=== PATIENT | male | born 1975 | race Caucasian/White ===

== ENCOUNTER 2017-02-04 06:20 | Observation (INO) | payer MEDICAID ==
[2017-02-04] VITALS (9 sets, daily range): BP systolic 74–114; BP diastolic 49–69; PULSE 32–78; RESP 16–19; TEMP 97.4–97.8; O2SAT 95–99
[~2017-02-04] VITALS: Ht 182.9 cm; Wt 65.0 kg
[~2017-02-04 06:20] MED LIST: COUM1TAB PO; LEVE500 PO; LITH150C7 PO; RISP4TAB41 PO; VIST25CA PO
[2017-02-04] MEDS ORDERED: ASPI81CH CHEW (06:43)
[2017-02-04] MEDS ORDERED: DILT30TA PO (06:43)
[2017-02-04] MEDS ORDERED: LEVE500 PO (06:43)
[2017-02-04] MEDS ORDERED: NITROGLYCERIN 2% OINT 1 GM PACKET TOPICAL ONE (06:45)
[2017-02-04] MEDS ORDERED: ASPIRIN 81 MG CHEW TAB CHEW ONE (06:45)
[2017-02-04 06:52] LABS: AUTOMATED NEUTROPHIL # 5.9 TH/MM3 (1.8-7.7); BASOPHIL # 0.1 TH/MM3 (0-0.2); BASOPHIL % 0.8 % (0.0-2.0); EOSINOPHIL # 0.3 TH/MM3 (0-0.4); EOSINOPHIL % 2.7 % (0.0-4.0); HEMATOCRIT 42.5 % (39.0-51.0); HEMO FLAGS DIFF FINAL; LYMPH % 30.4 % (9.0-44.0); MEAN CELL VOLUME 87.5 FL (80.0-100.0); MEAN CORPUSCULAR HEMOGLOBIN 28.8 PG (27.0-34.0); MONO % 5.3 % (0.0-8.0); NEUT % 60.8 % (16.0-70.0); PLATELET COUNT 235 TH/MM3 (150-450); RED BLOOD COUNT 4.86 MIL/MM3 (4.50-5.90); RED CELL DISTRIBUTION WIDTH 13.7 % (11.6-17.2); WHITE BLOOD COUNT 9.8 TH/MM3 (4.0-11.0)
--- NOTE | 2017-02-04 06:52 | PD ---
HPI Chief Complaint: Chest Pain Time Seen by Provider: 06:30 Travel History International Travel<30 days: No Contact w/Intl Traveler<30days: No Traveled to known affect area: No History of Present Illness HPI The patient is a 42 year old male who presents to the [facility] emergency department with a history of chest pain that he reports began approximate hour and a half prior to arrival. The patient reports that the pain is in the left side of his chest and is a pressure sensation. He reports that it radiates to the left arm and left jaw. He reports that in spite of taking 2 sublingual nitroglycerin the pain continued. He reports that he also took 1 baby aspirin. The patient reports that he has had for cardiac stents placed previously. He reports that his last cardiac catheterization was in 1999. He reports that this was in [place] at [facility]. The patient denies having any shortness of breath associated with the chest pain. He reports having nausea but no vomiting. He reports having associated diaphoresis. He denies having any lower extremity edema, calf pain, or erythema. He does however report having a history of DVT in the past. He reports that 3 days ago he was switched over from Coumadin to provide access by a physician in [place]. The patient denies any recent fevers, cough, congestion, neck pain,abdominal pain, diarrhea , urinary symptoms, or neurologic symptoms. [facility] Past Medical History Narrative Medical The patient's past medical history is significant for psoriasis, bipolar disorder, history of DVT, history of epilepsy, reported history of coronary artery disease, however after reviewing the electronic medical records the patient was admitted 2010 to the chest pain center and the records from [place] were obtained by Dr. Pepe. According to his note, the patient had no evidence of coronary artery stenosis and no stents were placed during a cardiac catheterization that was done previously. The patient did have however mild diffuse basal spasm of the LAD relieved with nitroglycerin that was thought to be caused by long-standing cocaine abuse. I asked the patient if he continues to use cocaine. He denies this, however he does report that he may have cocaine in his system from hanging around people in a vehicle that were using. Arthritis: No Asthma: No Autoimmune Disease: No Blood Disorders: No Anxiety: Yes Depression: No Heart Rhythm Problems: No Cancer: No Cardiac Catheterization: Yes (WITH STENT PLACEMENT 08/08) Cardiovascular Problems: Yes High Cholesterol: No Chemotherapy: No Chest Pain: Yes Congestive Heart Failure: No COPD: No Cerebrovascular Accident: No Coronary Artery Disease: Yes Diabetes: No Diminished Hearing: No Deep Vein Thrombosis: Yes Endocrine: No Gastrointestinal Disorders: No GERD: No Glaucoma: No Genitourinary: No Headaches: No Hepatitis: No Hiatal Hernia: No Hypertension: No Immune Disorder: No Implanted Vascular Access Dvce: No Kidney Stones: No Musculoskeletal: No Psychiatric: No Reproductive: No Respiratory: No Immunizations Current: No Migraines: No Myocardial Infarction: Yes Radiation Therapy: No Renal Failure: No Seizures: Yes Sickle Cell Disease: No Sleep Apnea: No Thyroid Disease: No Ulcer: No Past Surgical History Narrative Surgical The patient's past surgical history is significant for an umbilical hernia repair, cardiac catheterization, facial surgery. Abdominal Surgery: Yes (UMBILICAL HERNIA REPAIR) AICD: No Appendectomy: No Arteriovenous Shunt: No Cardiac Surgery: Yes (hx heart stents per records) Cholecystectomy: No Coronary Stent: Yes (X 2 2007) Ear Surgery: No Endocrine Surgery: No Eye Surgery: No Genitourinary Surgery: No Gynecologic Surgery: No Insulin Pump: No Joint Replacement: No Neurologic Surgery: No Oral Surgery: No Pacemaker: No Thoracic Surgery: No Other Surgery: Yes Social History Alcohol Use: No Tobacco Use: Yes Substance Use: No Allergies-Medications (Allergen,Severity, Reaction): Coded Allergies: Mushroom (Verified Allergy, Severe, SWELLING, 02/04/17) Penicillin (Verified Allergy, Mild, 02/04/17) Reported Meds & Prescriptions Reported Meds & Active Scripts Active Reported Diltiazem (Diltiazem HCl) 30 Mg Tab 30 Mg PO DAILY Aspirin 81 Mg Chew 81 Mg CHEW DAILY Keppra (Levetiracetam) 500 Mg Tab 500 Mg PO BID Review of Systems General / Constitutional: No: Fever Eyes: No: Visual changes HENT: No: Headaches Cardiovascular: Positive: Chest Pain or Discomfort, Diaphoresis Respiratory: No: Shortness of Breath Gastrointestinal: Positive: Nausea, No: Abdominal Pain Genitourinary: No: Dysuria Musculoskeletal: No: Pain Skin: No Rash Neurologic: No: Weakness Psychiatric: No: Depression Endocrine: No: Polydipsia Hematologic/Lymphatic: No: Easy Bruising Physical Exam Narrative General: The patient is a well-developed well-nourished male in no acute distress. Head and Neck exam: Head is normocephalic atraumatic. Eyes: EOMI, pupils are equal round and reactive to light. Nose: Midline septum with pink mucous membranes Mouth: Dentition unremarkable. Moist mucus membranes. Posterior oropharynx is not erythematous. No tonsillar hypertrophy. Uvula midline. Airway patent. Neck: No palpable lymphadenopathy. No nuchal rigidity. No thyromegaly. Cardiovascular: Regular rate and rhythm without murmurs, gallops, or rubs. No pulse deficit to the extremities and simultaneous auscultation and palpation of his radial artery. Lungs: Clear to auscultation bilaterally. No wheezes, rhonchi, or rales. Abdomen: Soft, without tenderness to palpation in all 4 quadrants of the abdomen. No guarding, rebound, or rigidity. Normal bowel sounds are audible. No tenderness on palpation of McBurney's point. Extremities: No clubbing, cyanosis, or edema. 2+ pulses in all 4 extremities. No calf tenderness on palpation. Back: No costovertebral angle tenderness to palpation. Neurologic Exam: Grossly nonfocal. Skin Exam: No rash noted. Intact skin that is warm and dry. Data Data Last Documented VS Vital Signs Date Time Temp Pulse Resp B/P Pulse Ox O2 Delivery O2 Flow Rate FiO2 02/04/17 06:37 97 Room Air 02/04/17 06:35 16 02/04/17 06:30 97.8 74 111/69 Orders Electrocardiogram (02/04/17 06:34) Complete Blood Count With Diff (02/04/17 06:34) Basic Metabolic Panel (Bmp) (02/04/17 06:34) Ckmb (Isoenzyme) Profile (02/04/17 06:34) Troponin I (02/04/17 06:34) Chest, Single Ap (02/04/17 06:34) Iv Access Insert/Monitor (02/04/17 06:34) Ecg Monitoring (02/04/17 06:34) Oxygen Administration (02/04/17 06:34) Oximetry (02/04/17 06:34) Aspirin Chew (Aspirin Chew) (02/04/17 06:45) Nitroglycerin 2% Oint (Nitroglycerin 2% (02/04/17 06:45) CKMB (02/04/17 06:40) CKMB% (02/04/17 06:40) Labs Laboratory Tests Test 02/04/17 06:40 White Blood Count 9.8 TH/MM3 Red Blood Count 4.86 MIL/MM3 Hemoglobin 14.0 GM/DL Hematocrit 42.5 % Mean Corpuscular Volume 87.5 FL Mean Corpuscular Hemoglobin 28.8 PG Mean Corpuscular Hemoglobin 33.0 % Concent Red Cell Distribution Width 13.7 % Platelet Count 235 TH/MM3 Mean Platelet Volume 8.6 FL Neutrophils (%) (Auto) 60.8 % Lymphocytes (%) (Auto) 30.4 % Monocytes (%) (Auto) 5.3 % Eosinophils (%) (Auto) 2.7 % Basophils (%) (Auto) 0.8 % Neutrophils # (Auto) 5.9 TH/MM3 Lymphocytes # (Auto) 3.0 TH/MM3 Monocytes # (Auto) 0.5 TH/MM3 Eosinophils # (Auto) 0.3 TH/MM3 Basophils # (Auto) 0.1 TH/MM3 CBC Comment DIFF FINAL Differential Comment Sodium Level 141 MEQ/L Potassium Level 3.7 MEQ/L Chloride Level 107 MEQ/L Carbon Dioxide Level 29.2 MEQ/L Anion Gap 5 MEQ/L Blood Urea Nitrogen 9 MG/DL Creatinine 1.04 MG/DL Estimat Glomerular Filtration 78 ML/MIN Rate Random Glucose 131 MG/DL Calcium Level 9.2 MG/DL Total Creatine Kinase 154 U/L Creatine Kinase MB 1.8 NG/ML Troponin I LESS THAN 0.02 NG/ML [facility] Medical Decision Making Medical Screen Exam Complete: Yes Emergency Medical Condition: Yes Medical Record Reviewed: Yes Differential Diagnosis Acute coronary syndrome, versus malingering, versus pneumothorax, versus acid reflux, versus pain medicine seeking behavior, versus anxiety disorder Narrative Course During the course of the patients emergency department visit, the patients history, examination, and differential diagnosis were reviewed with the patient. The patient had IV access obtained and blood work sent for analysis. The patient was placed on a teletypesetter monitor with oximetry and blood pressure monitoring. An EKG was done on arrival. The patient's EKG shows a sinus rhythm with a heart rate of [address] segment elevation or depression. The patient was initially provided aspirin 162 mg by mouth 1, nitroglycerin 1 inch the chest wall. The patients laboratory studies were reviewed and remarkable for a CBC that is within normal limits, BMP is remarkable for glucose of 131, CPK 154, troponin I less than 0.02 Radiology studies were reviewed and remarkable for a chest x-ray that shows no acute abnormality. The patient will be admitted to the hospital for a rule out serial cardiac enzyme protocol and consideration of stress testing. The patient reports that he last had a stress test done in 2013 The patients results were discussed with the patient, including the plan of care. I explained that further testing and/ or monitoring is indicated based on the patients history, examination, and/ or laboratory findings. Therefore, I recommended admission for additional evaluation. The patient expressed understanding and was agreeable with this plan. The patient was admitted to the hospital in stable condition and sent to a bed under the care of the chest pain center. Diagnosis Primary Impression: Chest pain, rule out acute myocardial infarction Admitting Information Admitting Physician Requests: Angela Guthrie MD Feb 04, 2017 06:52
[2017-02-04 07:08] LABS: ANION GAP 5 MEQ/L (5-15); BICARBONATE 29.2 MEQ/L (21.0-32.0); BLOOD UREA NITROGEN 9 MG/DL (7-18); CHLORIDE 107 MEQ/L (98-107); GLOMERULAR FILTRATION RATE 78 ML/MIN (>89); POTASSIUM 3.7 MEQ/L (3.5-5.1); SODIUM (NA) 141 MEQ/L (136-145)
[2017-02-04 07:12] LABS: CREATINE KINASE 154 U/L (39-308)
--- NOTE | 2017-02-04 07:16 | RADRPT ---
EXAM DATE/TIME: 02/04/2017 06:52 [place] COMPARISON: No previous studies available for comparison. INDICATIONS : Chest pain. MEDICAL HISTORY : None. SURGICAL HISTORY : None. ENCOUNTER: Initial ACUITY: 1 day PAIN SCORE: 8/10 LOCATION: Bilateral chest FINDINGS: A single view of the chest demonstrates the lungs to be symmetrically aerated without evidence of sig nificant mass, infiltrate or effusion. There are possible small calcified granulomas in the left upp er lung. The cardiomediastinal contours are unremarkable. Osseous structures are intact. There is a left nipple ring present. CONCLUSION: No acute disease. Oli Barraza MD on February 04, 2017 at 7:13 Board Certified Radiologist. This report was verified electronically.
[2017-02-04 07:24] LABS: CKMB 1.8 NG/ML (0.5-3.6)
[2017-02-04] MEDS ORDERED: ACETAMINOPHEN/HYDROcodone 325 MG/7.5 MG TAB PO PRN (08:45)
[2017-02-04] MEDS ORDERED: ACETAMINOPHEN 500 MG CPLT PO PRN (08:45)
[2017-02-04] MEDS ORDERED: SODIUM CHLORIDE 0.9% FLUSH 5 ML FLUSH IVF PRN (08:45)
[2017-02-04] MEDS ORDERED: ONDANSETRON HCL 4 MG/2 ML VIAL IV PRN (08:45)
[2017-02-04] MEDS ORDERED: RESP: ALBUTEROL 2.5 MG/IPRATROPIUM 0.5 MG NEB (PRN) INH ×2 (09:00→10:45)
[2017-02-04] MEDS ORDERED: SODIUM CHLORIDE 0.9% FLUSH 5 ML FLUSH IVF SCH (09:00)
[2017-02-04] MEDS ORDERED: ASPIRIN 325 MG TAB PO SCH (09:00)
[2017-02-04] MEDS ORDERED: PANTOPRAZOLE SOD 40 MG DELAYED RELEASE TAB PO SCH (09:00)
[2017-02-04] MEDS ORDERED: levETIRAcetam 500 MG TAB PO SCH (09:00)
[2017-02-04] MEDS ORDERED: SODIUM CHLOR 0.9% 1000 ML INJ 1,000 ML IV ONE ×2 (10:45→12:18)
[2017-02-04] MEDS ORDERED: RESP: ALBUTEROL 2.5 MG/IPRATROPIUM 0.5 MG NEB (SCH) INH ONE (10:45)
[2017-02-04 11:04] LABS: CREATINE KINASE 134 U/L (39-308)
[2017-02-04 11:16] LABS: CKMB 1.4 NG/ML (0.5-3.6)
[2017-02-04 11:51] LABS: CREATINE KINASE 110 U/L (39-308)
[2017-02-04 12:41] LABS: AMPHETAMINE, URINE NEG (NEG); BARBITURATES, URINE NEG (NEG); COCAINE, URINE POS (NEG)
--- NOTE | 2017-02-04 12:47 | HHI.HP ---
HPI Primary Care Physician No Primary Care Physician Chief Complaint Chest pain History of Present Illness This is a 42-year-old male that presents to ED with a complaint of a chest discomfort that began soon after landing from his flight from [place] this morning. It was present for a couple hours. At time of this examination patient was sleeping and was in no discomfort. He cannot recall being short of breath, having nausea, or having diaphoresis. He states that he has had stents in the past. However upon reviewing records from a prior admission records were obtained from [facility] that stated he had 0 areas of stenosis however he had spasm of the proximal LAD that was relieved with nitroglycerin. However there was 0% lesions in all coronary arteries. When I discussed this with the patient he is so adamant that he has stents. He states the stents were placed prior to that. He does not have a stent card. Also has history of a DVT in 2007 was on Coumadin but states that was discontinued a couple years ago. Review of Systems General: Patient denies fevers, chills recent, and recent travel HEENT: Patient denies headache, sore throat, difficulty swallowing. Cardiovascular: Has the chest discomfort as mentioned above. Denies sensation of heart beating rapidly or irregularly. No syncope. Denies diaphoresis. Respiratory: Denies shortness of breath or inspirational chest discomfort. Denies coughing wheezing or hemoptysis. GI: Patient denies nausea, vomiting, diarrhea, abdominal pain, bloody stools. Musculoskeletal: Patient denies joint pain or edema. Denies calf pain or edema. Neurovascular: Patient denies numbness, tingling, weakness in extremities. Denies headache. Endocrine: Denies polyuria and polydipsia. Hematologic: Denies easy bruising. Skin: Denies rash or itching. Past Family Social History Allergies: Coded Allergies: Mushroom (Verified Allergy, Severe, SWELLING, 02/04/17) Penicillin (Verified Allergy, Mild, 02/04/17) Past Medical History States he has coronary artery disease however a report from a prior hospitalization denies that. Also we were able to obtain records from the same hospital bed in fact show 0% lesions in all coronary arteries however there was moderate diffuse basal spasm of the LAD. That was relieved by nitroglycerin. History of seizure disorder. Patient also history of hyperlipidemia DVT in 2007 and bipolar disorder. Past Surgical History Cardiac catheterization without intervention in 2007 at [facility] in [place](this is via records obtained from that hospital.) Reported Medications Reported Meds & Active Scripts Active Reported Diltiazem (Diltiazem HCl) 30 Mg Tab 30 Mg PO DAILY Aspirin 81 Mg Chew 81 Mg CHEW DAILY Keppra (Levetiracetam) 500 Mg Tab 500 Mg PO BID Active Ordered Medications Current Medications Medications (Trade) Dose Ordered Sig/Antonia Route Start Time Stop Time Status Last Admin (NS Flush) 2 ml UNSCH PRN IVF 02/04/17 08:45 (NS Flush) 2 ml BID IVF 02/04/17 09:00 02/04/17 09:00 (Tylenol) 500 mg Q4H PRN PO 02/04/17 08:45 ([place] 7.5-325 Mg) 1 tab Q4H PRN PO 02/04/17 08:45 (Zofran Inj) 4 mg Q6H PRN IV 02/04/17 08:45 (Protonix) 40 mg DAILY PO 02/04/17 09:00 02/04/17 09:45 (Aspirin) 325 mg DAILY PO 02/04/17 09:00 02/04/17 09:45 Levetriacetam 500 mg 500 mg BID PO 02/04/17 09:00 02/04/17 09:45 (NS 1000 ml Inj) 1,000 ml @ 1,000 mls/hr Q1H ONCE IV 02/04/17 12:18 02/04/17 13:17 Family History States his father had CAD. States that his mother of a myocardial infarction at age 72. Social History Patient continues to smoke about 1 pack of cigarettes daily. Denies alcohol. States he has occasional marijuana but denies other illicit drugs. States he's had no cocaine for 5 years. Recently moved here from [place]. He is on disability secondary to seizure disorder Physical Exam Vital Signs Vital Signs Date Time Temp Pulse Resp B/P Pulse Ox O2 Delivery O2 Flow Rate FiO2 02/04/17 12:18 70 88/49 95 02/04/17 12:06 69 02/04/17 11:25 97.4 57 17 97/61 98 02/04/17 11:17 98 21 02/04/17 09:09 97.8 32 19 91/54 96 02/04/17 08:50 70 16 101/63 97 Room Air 02/04/17 06:37 97 Room Air 02/04/17 06:35 16 02/04/17 06:30 97.8 74 16 111/69 99 02/04/17 06:22 78 16 74/52 98 Physical Exam GENERAL: This is a well-nourished, well-developed patient, in no apparent distress. Patient speaks in clear complete sentences. Patient continues to fall sleep throughout examination has been woken up many times. HEENT: Head is atraumatic and normocephalic. Neck is supple without lymphadenopathy and trachea is midline. No JVD or carotid bruits. CARDIOVASCULAR: Regular rate and rhythm without murmurs, gallops, or rubs. RESPIRATORY: Mild wheezing bilateral bases. Breath sounds equal bilaterally. No rales, or rhonchi. Chest wall is nontender. No use of accessory muscles. GASTROINTESTINAL: Abdomen is nontender, nondistended. Abdomen soft. No obvious pulsatile mass or bruit. No CVA tenderness. Strong femoral pulses bilaterally. Normal bowel sounds in all quadrants. MUSCULOSKELETAL: Patient is moving upper and lower extremities freely. No calf tenderness or edema, no Homans sign. Strong pulses in upper and lower extremities. NEUROLOGICAL: Patient is alert and oriented. Cranial nerves 2-12 are grossly intact. No focal deficits and speech is clear. SKIN: No rash and turgor is normal. Laboratory Laboratory Tests Test 02/04/17 02/04/17 02/04/17 02/04/17 06:40 09:45 11:00 11:38 White Blood Count 9.8 Red Blood Count 4.86 Hemoglobin 14.0 Hematocrit 42.5 Mean Corpuscular Volume 87.5 Mean Corpuscular Hemoglobin 28.8 Mean Corpuscular Hemoglobin 33.0 Concent Red Cell Distribution Width 13.7 Platelet Count 235 Mean Platelet Volume 8.6 Neutrophils (%) (Auto) 60.8 Lymphocytes (%) (Auto) 30.4 Monocytes (%) (Auto) 5.3 Eosinophils (%) (Auto) 2.7 Basophils (%) (Auto) 0.8 Neutrophils # (Auto) 5.9 Lymphocytes # (Auto) 3.0 Monocytes # (Auto) 0.5 Eosinophils # (Auto) 0.3 Basophils # (Auto) 0.1 CBC Comment DIFF FINAL Differential Comment Sodium Level 141 Potassium Level 3.7 Chloride Level 107 Carbon Dioxide Level 29.2 Anion Gap 5 Blood Urea Nitrogen 9 Creatinine 1.04 Estimat Glomerular Filtration 78 Rate Random Glucose 131 Calcium Level 9.2 Total Creatine Kinase 154 134 110 Creatine Kinase MB 1.8 1.4 Troponin I LESS THAN 0.02 LESS THAN 0.02 LESS THAN 0.02 Valproic Acid (Depakene) Level LESS THAN 3 Result Diagram: 02/04/17 0640 02/04/17 0640 Imaging Last 48 hours Impressions Chest X-Ray 02/04/17 0634 Signed Impressions: Service Date/Time: Saturday, February 04, 2017 06:52 - CONCLUSION: No acute disease. Oli Barraza MD Course EKGs have sinus rhythm sinus bradycardia without significant ST segment depressions or elevations. Assessment and Plan Assessment and Plan * Chest pain: Patient will continue to have serial cardiac enzymes and EKGs for ruling out purposes. He has been seen by Dr. Rivera cardiology and the chest pain center. Patient had a heart catheterization 2007 without coronary artery stenosis. He will be discharged after ruling out. * Tobacco abuse: Patient has been counseled on the importance of smoking cessation. * Hyperlipidemia: Continue her medication. * Bipolar disorder: Continue current medication. * Cocaine abuse: Patient has been counseled on importance of no longer using illicit drugs. Patient is stable this time. He is agreeable to this plan. Alberto Juarez Feb 04, 2017 12:47
--- NOTE | 2017-02-04 13:30 | HHI.DCPOC ---
Discharge Care Plan Diagnosis: (1) Chest pain (2) Cocaine abuse (3) Tobacco abuse (4) Bipolar disorder (5) History of seizures Goals to Promote Your Health * To prevent worsening of your condition and complications * To maintain your health at the optimal level Directions to Meet Your Goals Take your medications as prescribed Follow your dietary instruction Follow activity as directed Keep your appointments as scheduled Take your immunizations and boosters as scheduled If your symptoms worsen call your PCP, if no PCP go to Urgent Care Center or Emergency Room Smoking is Dangerous to Your Health. Avoid second hand smoke Call the 24-hour hour crisis hotline for domestic abuse at Alberto Juarez Feb 04, 2017 13:30
--- NOTE | 2017-02-04 16:14 | EKG ---
Date Performed: 02/04/2017 Time Performed: 12:52:11 PTAGE: 42 years EKG: SINUS BRADYCARDIA WITH SINUS ARRHYTHMIA BORDERLINE ECG Since PREVIOUS TRACING , no significant change noted PREVIOUS TRACIN02/04/2017 09.55 DOCTOR: Jana Rivera Interpretating Date/Time 02/04/2017 16:12:10
--- NOTE | 2017-02-04 16:17 | EKG ---
Date Performed: 02/04/2017 Time Performed: 06:27:57 PTAGE: 42 years EKG: Sinus rhythm NORMAL ECG Since PREVIOUS TRACING , no significant change noted PREVIOUS TRACIN09/27/2010 00.25 DOCTOR: Jana Rivera Interpretating Date/Time 02/04/2017 16:15:45
--- NOTE | 2017-02-04 16:17 | EKG ---
Date Performed: 02/04/2017 Time Performed: 09:55:58 PTAGE: 42 years EKG: SINUS BRADYCARDIA WITH SHORT TN INTERVAL BORDERLINE ECG Since previous tracing, no signific ant change noted NO PREVIOUS TRACING DOCTOR: Jana Rivera Interpretating Date/Time 02/04/2017 16:15:09
[2017-02-05] MEDS ORDERED: DEPA250T2 PO (00:56)
== END 2017-02-04 14:25 | disposition home or self-care (01) ==
LOC: NEPC 06:20 → NEDA 07:35 → NEPHCDU 09:00
PROVIDERS: ADMIT Internal Medicine Interventional Cardiology; ATTEND Internal Medicine Interventional Cardiology
DX: R07.89 Other chest pain (principal); E78.5 Hyperlipidemia, unspecified; F31.9 Bipolar disorder, unspecified; G40.909 Epilepsy, unspecified, not intractable, without status epilepticus; I25.10 Atherosclerotic heart disease of native coronary artery without angina pectoris; F14.10 Cocaine abuse, uncomplicated; F41.9 Anxiety disorder, unspecified; I25.2 Old myocardial infarction; F17.210 Nicotine dependence, cigarettes, uncomplicated; Z95.5 Presence of coronary angioplasty implant and graft; Z86.718 Personal history of other venous thrombosis and embolism; Z88.0 Allergy status to penicillin; Z91.018 Allergy to other foods; Z79.82 Long term (current) use of aspirin
CPT/HCPCS: 71010; 80048; 80164; 80307; 82550; 82552; 84484; 85025; 93005; 94664; 96360; 99285; G0378; J7030

== ENCOUNTER 2017-02-04 22:07 | Emergency (ER) | payer MEDICAID ==
[~2017-02-04] VITALS: Ht 175.3 cm; Wt 75.0 kg
[~2017-02-04 22:07] MED LIST changes: +ASPI81CH CHEW; +DILT30TA PO
[2017-02-04 22:21] VITALS: BP 114/64; PULSE 83; RESP 18; TEMP 98.6; O2SAT 96
--- NOTE | 2017-02-05 00:15 | PD ---
HPI Chief Complaint: Psychiatric Symptoms Time Seen by Provider: 00:10 Travel History International Travel<30 days: No Contact w/Intl Traveler<30days: No Traveled to known affect area: No History of Present Illness HPI 42-year-old white male presents to emergency department on a voluntary basis for psychological evaluation. He states that he was just discharged from the hospital this morning after having a chest pain evaluation. He states that when he had gotten home his significant other and the 2 children that he had been fathering left hand were heading back to [place]. He states that they moved here from [place] one month ago. He has a history of substance abuse, bipolar, seizure disorder, and coronary artery disease. He has been off his medications down for a month. The patient states that he had just gotten into town yesterday after he had flown to [place] for a . His grandmother had . She states that while injury, though he did smoke crack cocaine. He states that he was told by a family member that his significant other was going back to [place] because she had been communicating with another male. The patient admits to feeling depressed. She has had thoughts of self-harm but has no intention on hurting himself. He had called the suicide hotline to talk. He was advised to come to the ER to be evaluated. He has no homicidal ideation. No toxic ingestions. PFSH Past Medical History Arthritis: No Asthma: No Autoimmune Disease: No Blood Disorders: No Anxiety: Yes Depression: No Heart Rhythm Problems: No Cancer: No Cardiac Catheterization: Yes (WITH STENT PLACEMENT 08/07) Cardiovascular Problems: Yes High Cholesterol: No Chemotherapy: No Chest Pain: Yes Congestive Heart Failure: No COPD: No Cerebrovascular Accident: No Coronary Artery Disease: Yes Diabetes: No Diminished Hearing: No Deep Vein Thrombosis: Yes Endocrine: No Gastrointestinal Disorders: No GERD: No Glaucoma: No Genitourinary: No Headaches: No Hepatitis: No Hiatal Hernia: No Hypertension: No Immune Disorder: No Implanted Vascular Access Dvce: No Kidney Stones: No Musculoskeletal: No Psychiatric: No Reproductive: No Respiratory: No Immunizations Current: No Migraines: No Myocardial Infarction: Yes Radiation Therapy: No Renal Failure: No Seizures: Yes Sickle Cell Disease: No Sleep Apnea: No Thyroid Disease: No Ulcer: No Tetanus Vaccination: < 5 Years Influenza Vaccination: Yes Past Surgical History Abdominal Surgery: Yes (UMBILICAL HERNIA REPAIR) AICD: No Appendectomy: No Arteriovenous Shunt: No Cardiac Surgery: Yes (hx heart stents per records) Cholecystectomy: No Coronary Stent: Yes (X 2 2007) Ear Surgery: No Endocrine Surgery: No Eye Surgery: No Genitourinary Surgery: No Gynecologic Surgery: No Insulin Pump: No Joint Replacement: No Neurologic Surgery: No Oral Surgery: No Pacemaker: No Thoracic Surgery: No Other Surgery: Yes Family History Family Myocardial Infarction: Yes (Mother of heart attack at 72) Social History Alcohol Use: No Tobacco Use: Yes Substance Use: No Allergies-Medications (Allergen,Severity, Reaction): Coded Allergies: Mushroom (Verified Allergy, Severe, SWELLING, 02/04/17) Penicillin (Verified Allergy, Mild, 02/04/17) Reported Meds & Prescriptions Reported Meds & Active Scripts Active Depakote DR (Divalproex Sodium) 250 Mg Tabdr 250 Mg PO BID Reported Diltiazem (Diltiazem HCl) 30 Mg Tab 30 Mg PO DAILY Aspirin 81 Mg Chew 81 Mg CHEW DAILY Keppra (Levetiracetam) 500 Mg Tab 500 Mg PO BID Review of Systems Except as stated in HPI: all other systems reviewed are Neg Psychiatric: Positive: Depression, Mood Disorder, Substance Abuse, No: Anxiety , Suicidal Ideations, Disorder of Thought, Homicidal Ideation Physical Exam Narrative GENERAL: Well-nourished, well-developed patient. SKIN: Warm and dry. HEAD: Normocephalic and atraumatic. EYES: No scleral icterus. No injection or drainage. ENT: No nasal drainage noted. Mucous membranes pink. Airway patent. NECK: Supple, trachea midline. Moves head freely without obvious discomfort. CARDIOVASCULAR: Regular rate and rhythm without murmurs, gallops, or rubs. RESPIRATORY: Breath sounds equal bilaterally. No accessory muscle use. GASTROINTESTINAL: Abdomen soft, non-tender, nondistended. EXTREMITIES: No cyanosis or edema. BACK: Nontender without obvious deformity. No CVA tenderness. NEURO: Patient is alert and oriented. no sensorimotor deficits. Nonfocal. Normal speech. PSYCH: No delusions. No auditory or visual hallucinations. Data Data Last Documented VS Vital Signs Date Time Temp Pulse Resp B/P Pulse Ox O2 Delivery O2 Flow Rate FiO2 02/04/17 23:35 16 02/04/17 22:21 98.6 83 114/64 96 Room Air Orders Valproic Acid (Depakene) (02/05/17 00:04) Psych Screen (02/05/17 00:04) Nalini Ocasio (Jessi Ocasio) (02/05/17 01:00) MDM Medical Decision Making Medical Screen Exam Complete: Yes Emergency Medical Condition: Yes Medical Record Reviewed: Yes Differential Diagnosis MDM: High Differential diagnoses: Schizophrenia, schizoaffective disorder, bipolar, anxiety, depression, adjustment reaction, mood disorder NOS, ODD, depressive disorder NOS, dementia, dementia with agitation, psychosis NOS, substance induced mood disorder, intermittent explosive disorder, Asperger syndrome, infection,electrolyte abnormality, malingering. Narrative Course Mental health screening discussed with the patient. Psychiatric screen ordered. I have had a lengthy discussion with the patient. I do not believe that he is truly suicidal. I will have the patient evaluated by the psych screener. The patient has been seen by the psych screener. He also agrees that the patient is not a risk to himself or others. He feels comfortable going home. The patient verbally contracts for safety. I've agreed to give him a prescription for Depakote 250 twice a day for 2 weeks. This is bipolar-depressed Diagnosis Primary Impression: bipolar-depressed Referrals: [facility] (Out patient) 3 days Patient Instructions: General Instructions Additional Instructions: Rest. Take her Depakote twice daily. Follow-up with a psychiatrist within the next 3-7 days Return to the ER if symptoms worsen or call 911. Med/Other Pt SpecificInfo: Prescription(s) given Scripts Nalini OCASIO (Jessi OCASIO)250 Mg [id number] Mg PO BID #30 TAB Ref 0 Prov:Carlos Alberto Barragan MD 02/05/17 Disposition: DISCHARGE HOME Condition: Stable Oliver Quinteros Feb 05, 2017 00:15
[2017-02-05] MEDS ORDERED: DEPA250T2 PO (00:56)
[2017-02-05] MEDS ORDERED: DIVALPROEX SODIUM DELAYED RELEASE 250 MG TAB PO ONE (01:00)
--- NOTE | 2017-02-05 17:41 | PD ---
History of Present Illness Chief Complaint: Psychiatric Symptoms Time Seen by Provider: 11:35 Travel History International Travel<30 Days: No Contact w/Intl Traveler<30days: No Known affected area: No Legal Status Legal Status: Voluntary History of Present Illness: History of Present Illness HPI 42-year-old white male with history of substance use disorder and reported hx of bipolar disorder who presents to ED on a voluntary basis for psychological evaluation. He was just discharged from the hospital this morning after being evaluated for chest pain. He states now that when he went home his significant other and the 2 children left and were heading back to [place]. He states that they moved here from [place] one month ago. He reported to ed staff that he has been off his medication x 4 weeks. The patient is seen in main ed. He is sleeping. he awakens but is not vested in participating in the interview. He tells me he just got back from [place] and that " I have been feeling depressed for years". He also reports that he last took his medications 4 weeks ago. He does not verbalize any suicidal ideation, intent or plan. he does not appear to be internally stimulated. His current toxicology is positive for cocaine. PFSH Past Medical History Arthritis: No Asthma: No Autoimmune Disease: No Blood Disorders: No Anxiety: Yes Depression: No Heart Rhythm Problems: No Cancer: No Cardiac Catheterization: Yes (WITH STENT PLACEMENT 08/07) Cardiovascular Problems: Yes High Cholesterol: No Chemotherapy: No Chest Pain: Yes Congestive Heart Failure: No COPD: No Cerebrovascular Accident: No Coronary Artery Disease: Yes Diabetes: No Diminished Hearing: No Deep Vein Thrombosis: Yes Endocrine: No Gastrointestinal Disorders: No GERD: No Glaucoma: No Genitourinary: No Headaches: No Hepatitis: No Hiatal Hernia: No Hypertension: No Immune Disorder: No Implanted Vascular Access Dvce: No Kidney Stones: No Musculoskeletal: No Psychiatric: No Reproductive: No Respiratory: No Immunizations Current: No Migraines: No Myocardial Infarction: Yes Radiation Therapy: No Renal Failure: No Seizures: Yes Sickle Cell Disease: No Sleep Apnea: No Thyroid Disease: No Ulcer: No Tetanus Vaccination: < 5 Years Influenza Vaccination: Yes Past Surgical History Abdominal Surgery: Yes (UMBILICAL HERNIA REPAIR) AICD: No Appendectomy: No Arteriovenous Shunt: No Cardiac Surgery: Yes (hx heart stents per records) Cholecystectomy: No Coronary Stent: Yes (X 2 2007) Ear Surgery: No Endocrine Surgery: No Eye Surgery: No Genitourinary Surgery: No Gynecologic Surgery: No Insulin Pump: No Joint Replacement: No Neurologic Surgery: No Oral Surgery: No Pacemaker: No Thoracic Surgery: No Other Surgery: Yes Psychiatric History Psychiatric History Hx Psychiatric Treatment: BIPOLAR dx at THE AGE OF 18 History of Inpatient Treatment: Yes (Last hospitalization in 2009 in [facility]. ) Guns or firearms in home: No Social History Single male. Currently living by himself. On SSI. Hx Alcohol Use: No Hx Tobacco Use: Yes Hx Substance Use: No Substance Use Type: Marijuana, Nicotine/Cigarettes Hx of Substance Use Treatment: No Family Psychiatric History None reported. Allergies-Medications (Allergen,Severity, Reaction): Coded Allergies: Egg Allergy (Verified Allergy, Severe, Anaphylaxis, 02/05/17) Morphine (Verified Allergy, Severe, Anaphylaxis, 02/05/17) Mushroom (Verified Allergy, Severe, SWELLING, 02/05/17) Penicillin (Verified Allergy, Mild, 02/05/17) Reported Meds & Prescriptions Reported Meds & Active Scripts Active Depakote DR (Divalproex Sodium) 250 Mg Tabdr 250 Mg PO BID Reported Diltiazem (Diltiazem HCl) 30 Mg Tab 30 Mg PO DAILY Aspirin 81 Mg Chew 81 Mg CHEW DAILY Keppra (Levetiracetam) 500 Mg Tab 500 Mg PO BID Review of Systems ROS Limitations: Refused Exam Alert: Yes [place]: Person (ox4) Mood: Calm Affect: Appropriate Speech: Clear, Logical Eye Contact: None Memory Intact: Comment (not formally tetsed. ) Hallucinations: Other (Negative) Delusions: No Suicidal: Ideation (Negative) Homicidal: Ideation (Negative) Insight/Judgement Poor. Poor MDM Medical Decision Making Medical Record Reviewed: Yes Assessment/Plan 42 year old male with history of substance use disorder as well as reported hx of bipolar disorder who presents to ed on a voluntary status several hours after he was discharged from the hospital for evaluation of chest pain. Orders Valproic Acid (Depakene) (02/05/17 00:04) Psych Screen (02/05/17 00:04) Divalproex (Jessi Ocasio) (02/05/17 01:00) Results Vital Signs Date Time Temp Pulse Resp B/P Pulse Ox O2 Delivery O2 Flow Rate FiO2 02/04/17 23:35 16 02/04/17 22:21 98.6 83 18 114/64 96 Room Air Laboratory Tests Test 02/05/17 01:00 Valproic Acid (Depakene) Level LESS THAN 3 Diagnosis Primary Impression: bipolar-depressed Referrals: [facility] (Out patient) 3 days Departure Forms: Tests/Procedures Patient Instructions: General Instructions, Bipolar Disorder (ED) Additional Instructions: Rest. Take her Depakote twice daily. Follow-up with a psychiatrist within the next 3-7 days Return to the ER if symptoms worsen or call 911. Prescriptions Divalproex (Depwang OCASIO)250 Mg [id number] Mg PO BID #30 TAB Ref 0 Prov:Carlos Alberto Barragan MD 02/05/17 Disposition: 01 DISCHARGE HOME Condition: Stable Ana Maria MercadoP Feb 05, 2017 17:41
== END 2017-02-05 01:30 | disposition home or self-care (01) ==
LOC: NEDAMB 22:07 → NEPD 02-05 01:30
DX: F31.89 Other bipolar disorder (principal); F33.8 Other recurrent depressive disorders; Z87.891 Personal history of nicotine dependence; Z86.718 Personal history of other venous thrombosis and embolism; I25.2 Old myocardial infarction
CPT/HCPCS: 80164; 99284

== ENCOUNTER 2017-02-05 07:39 | Emergency (ER) | payer MEDICAID ==
[~2017-02-05] VITALS: Ht 182.9 cm; Wt 61.0 kg
[~2017-02-05 07:39] MED LIST changes: -COUM1TAB PO; +DEPA250T2 PO; -LITH150C7 PO; -RISP4TAB41 PO; -VIST25CA PO
[2017-02-05 07:41] VITALS: BP 117/75; PULSE 88; RESP 16; TEMP 99.2; O2SAT 97
--- NOTE | 2017-02-05 08:08 | PD ---
HPI Chief Complaint: Suicide Ideation/Attempt Time Seen by Provider: 08:02 Travel History International Travel<30 days: No Contact w/Intl Traveler<30days: No Traveled to known affect area: No History of Present Illness HPI 42-year-old male with history of depression, seen yesterday for suicidal ideation, presents to the ER today because he states that he is having more suicidal ideation, thinking about cutting his wrist. He denies any ingestions or any other issues. Modifying Factors: None Associated Signs & Symptoms: Suicidal ideation Risk Factors: Bipolar, depression, history of suicidal ideation PFSH Past Medical History Arthritis: No Asthma: No Autoimmune Disease: No Blood Disorders: No Anxiety: Yes Depression: No Heart Rhythm Problems: No Cancer: No Cardiac Catheterization: Yes (WITH STENT PLACEMENT 08/07) Cardiovascular Problems: Yes (CAD) High Cholesterol: No Chemotherapy: No Chest Pain: Yes Congestive Heart Failure: No COPD: No Cerebrovascular Accident: No Coronary Artery Disease: Yes Diabetes: No Diminished Hearing: No Deep Vein Thrombosis: Yes Endocrine: No Gastrointestinal Disorders: No GERD: No Glaucoma: No Genitourinary: No Headaches: No Hepatitis: No Hiatal Hernia: No Hypertension: No Immune Disorder: No Implanted Vascular Access Dvce: No Kidney Stones: No Musculoskeletal: No Psychiatric: No Reproductive: No Respiratory: No Immunizations Current: No Migraines: No Myocardial Infarction: Yes Radiation Therapy: No Renal Failure: No Seizures: Yes Sickle Cell Disease: No Sleep Apnea: No Thyroid Disease: No Ulcer: No Past Surgical History Abdominal Surgery: Yes (UMBILICAL HERNIA REPAIR) AICD: No Appendectomy: No Arteriovenous Shunt: No Cardiac Surgery: Yes (hx heart stents per records) Cholecystectomy: No Coronary Stent: Yes (X 2 2007) Ear Surgery: No Endocrine Surgery: No Eye Surgery: No Genitourinary Surgery: No Gynecologic Surgery: No Insulin Pump: No Joint Replacement: No Neurologic Surgery: No Oral Surgery: No Pacemaker: No Thoracic Surgery: No Other Surgery: Yes Social History Alcohol Use: No Tobacco Use: Yes Substance Use: No Allergies-Medications (Allergen,Severity, Reaction): Coded Allergies: Egg Allergy (Verified Allergy, Severe, Anaphylaxis, 02/05/17) Morphine (Verified Allergy, Severe, Anaphylaxis, 02/05/17) Mushroom (Verified Allergy, Severe, SWELLING, 02/05/17) Penicillin (Verified Allergy, Mild, 02/05/17) Reported Meds & Prescriptions Reported Meds & Active Scripts Active Depakote DR (Divalproex Sodium) 250 Mg Tabdr 250 Mg PO BID Reported Diltiazem (Diltiazem HCl) 30 Mg Tab 30 Mg PO DAILY Aspirin 81 Mg Chew 81 Mg CHEW DAILY Keppra (Levetiracetam) 500 Mg Tab 500 Mg PO BID Review of Systems Except as stated in HPI: all other systems reviewed are Neg Physical Exam Narrative GENERAL: Well-developed middle age white male patient currently in mild distress. Awake and oriented 3. SKIN: Focused skin assessment warm/dry. HEAD: Atraumatic. Normocephalic. EYES: Pupils equal and round. No scleral icterus. No injection or drainage. ENT: No nasal bleeding or discharge. Mucous membranes pink and moist. NECK: Trachea midline. No JVD. CARDIOVASCULAR: Regular rate and rhythm. No murmur appreciated. RESPIRATORY: No accessory muscle use. Clear to auscultation. Breath sounds equal bilaterally. GASTROINTESTINAL: Abdomen soft, non-tender, nondistended. Hepatic and splenic margins not palpable. MUSCULOSKELETAL: No obvious deformities. No clubbing. No cyanosis. No edema. NEUROLOGICAL: Awake and alert. No obvious cranial nerve deficits. Motor grossly within normal limits. Normal speech. PSYCHIATRIC: Depressed mood and flat affect; insight and judgment normal. Data Data Last Documented VS Vital Signs Date Time Temp Pulse Resp B/P Pulse Ox O2 Delivery O2 Flow Rate FiO2 02/05/17 07:52 16 Room Air 02/05/17 07:41 99.2 88 117/75 97 Orders Complete Blood Count With Diff (02/05/17 07:55) Comprehensive Metabolic Panel (02/05/17 07:55) Psych Screen (02/05/17 07:55) Drug Screen, Random Urine (02/05/17 07:55) Alcohol (Ethanol) (02/05/17 07:55) Labs Laboratory Tests Test 02/05/17 08:06 White Blood Count 12.0 TH/MM3 Red Blood Count 4.61 MIL/MM3 Hemoglobin 13.1 GM/DL Hematocrit 40.0 % Mean Corpuscular Volume 86.6 FL Mean Corpuscular Hemoglobin 28.5 PG Mean Corpuscular Hemoglobin 32.9 % Concent Red Cell Distribution Width 13.6 % Platelet Count 234 TH/MM3 Mean Platelet Volume 8.7 FL Neutrophils (%) (Auto) 77.8 % Lymphocytes (%) (Auto) 16.6 % Monocytes (%) (Auto) 4.0 % Eosinophils (%) (Auto) 1.1 % Basophils (%) (Auto) 0.5 % Neutrophils # (Auto) 9.4 TH/MM3 Lymphocytes # (Auto) 2.0 TH/MM3 Monocytes # (Auto) 0.5 TH/MM3 Eosinophils # (Auto) 0.1 TH/MM3 Basophils # (Auto) 0.1 TH/MM3 CBC Comment DIFF FINAL Differential Comment Sodium Level 143 MEQ/L Potassium Level 3.9 MEQ/L Chloride Level 107 MEQ/L Carbon Dioxide Level 27.0 MEQ/L Anion Gap 9 MEQ/L Blood Urea Nitrogen 11 MG/DL Creatinine 0.98 MG/DL Estimat Glomerular Filtration 83 ML/MIN Rate Random Glucose 117 MG/DL Calcium Level 8.8 MG/DL Total Bilirubin 0.2 MG/DL Aspartate Amino Transf 12 U/L (AST/SGOT) Alanine Aminotransferase 14 U/L (ALT/SGPT) Alkaline Phosphatase 80 U/L Total Protein 6.5 GM/DL Albumin 3.4 GM/DL Ethyl Alcohol Level LESS THAN 3 MG/DL MDM Medical Decision Making Medical Screen Exam Complete: Yes Emergency Medical Condition: Yes Medical Record Reviewed: Yes Interpretation(s) Laboratory Tests Test 02/05/17 08:06 White Blood Count 12.0 TH/MM3 (4.0-11.0) Neutrophils (%) (Auto) 77.8 % (16.0-70.0) Neutrophils # (Auto) 9.4 TH/MM3 (1.8-7.7) Estimat Glomerular Filtration 83 ML/MIN (>89) Rate Random Glucose 117 MG/DL (74-106) Aspartate Amino Transf 12 U/L (15-37) (AST/SGOT) Differential Diagnosis Depression, suicidal ideationrule out metabolic issues versus alcohol intoxication Narrative Course Vital signs are stable in the ER and metabolic panels are unremarkable. At this point, my plan would be to medically cleared patient for psychiatric evaluation. Diagnosis Primary Impression: Suicidal ideation Disposition: 65 DISC TO PSYCH CARE FACILITY Condition: Stable Phu Rankin MD Feb 05, 2017 08:08
[2017-02-05 08:22] LABS: AUTOMATED NEUTROPHIL # 9.4 TH/MM3 (1.8-7.7); BASOPHIL # 0.1 TH/MM3 (0-0.2); BASOPHIL % 0.5 % (0.0-2.0); EOSINOPHIL # 0.1 TH/MM3 (0-0.4); EOSINOPHIL % 1.1 % (0.0-4.0); HEMO FLAGS DIFF FINAL; LYMPH % 16.6 % (9.0-44.0); MEAN CELL VOLUME 86.6 FL (80.0-100.0); MEAN CORPUSCULAR HEMOGLOBIN 28.5 PG (27.0-34.0); MEAN CORPUSCULAR HGB CONC 32.9 % (32.0-36.0); NEUT % 77.8 % (16.0-70.0); PLATELET COUNT 234 TH/MM3 (150-450); RED BLOOD COUNT 4.61 MIL/MM3 (4.50-5.90); RED CELL DISTRIBUTION WIDTH 13.6 % (11.6-17.2)
[2017-02-05 08:38] LABS: BLOOD UREA NITROGEN 11 MG/DL (7-18); GLOMERULAR FILTRATION RATE 83 ML/MIN (>89)
[2017-02-05 08:39] LABS: ALT (GPT) 14 U/L (12-78); ANION GAP 9 MEQ/L (5-15); AST (GOT) 12 U/L (15-37); CHLORIDE 107 MEQ/L (98-107); POTASSIUM 3.9 MEQ/L (3.5-5.1); SODIUM (NA) 143 MEQ/L (136-145)
[2017-02-05 08:41] LABS: ALKALINE PHOSPHATASE 80 U/L (45-117); TOTAL BILIRUBIN ADULT 0.2 MG/DL (0.2-1.0)
[2017-02-05 09:09] LABS: AMPHETAMINE, URINE NEG (NEG); BARBITURATES, URINE NEG (NEG); COCAINE, URINE POS (NEG)
--- NOTE | 2017-02-05 11:45 | PD ---
History of Present Illness Chief Complaint: Suicide Ideation/Attempt Time Seen by Provider: 11:35 Travel History International Travel<30 Days: No Contact w/Intl Traveler<30days: No Known affected area: No Legal Status Legal Status: Voluntary History of Present Illness: History of Present Illness 42-year-old male with history of depression, seen yesterday for suicidal ideation, presents to the ER today because he states that he is having more suicidal ideation, thinking about cutting his wrist. He denies any ingestions or any other issues. The patient is seen in main ed. He is sleeping. he awakens but is not vested in participating in the interview. He tells me he just got back from [place] and that " I have been feeling depressed for years". He also reports that he last took his medications 4 weeks ago. He does not verbalize any suicidal ideation, intent or plan. he does not appear to be internally stimulated. His current toxicology is positive for cocaine. PFSH Past Medical History Arthritis: No Asthma: No Autoimmune Disease: No Blood Disorders: No Bipolar Disorder: Yes Anxiety: Yes Depression: No Heart Rhythm Problems: No Cancer: No Cardiac Catheterization: Yes Cardiovascular Problems: Yes (CAD) High Cholesterol: No Chemotherapy: No Chest Pain: Yes Congestive Heart Failure: No COPD: No Cerebrovascular Accident: No Coronary Artery Disease: Yes Diabetes: No Diminished Hearing: No Deep Vein Thrombosis: Yes Endocrine: No Gastrointestinal Disorders: No GERD: No Glaucoma: No Genitourinary: No Headaches: No Hepatitis: No Hiatal Hernia: No Hypertension: No Immune Disorder: No Implanted Vascular Access Dvce: No Kidney Stones: No Musculoskeletal: No Psychiatric: No Reproductive: No Respiratory: No Immunizations Current: No Migraines: No Myocardial Infarction: Yes (2006 2007) Radiation Therapy: No Renal Failure: No Seizures: Yes Sickle Cell Disease: No Sleep Apnea: No Thyroid Disease: No Ulcer: No Tetanus Vaccination: < 5 Years Influenza Vaccination: Yes Past Surgical History Abdominal Surgery: Yes (umbilical hernia repair) AICD: No Appendectomy: No Arteriovenous Shunt: No Cardiac Surgery: Yes (hx heart stents per records) Cholecystectomy: No Coronary Stent: Yes (X 2 2007) Ear Surgery: No Endocrine Surgery: No Eye Surgery: No Genitourinary Surgery: No Gynecologic Surgery: No Insulin Pump: No Joint Replacement: No Neurologic Surgery: No Oral Surgery: No Pacemaker: No Thoracic Surgery: No Other Surgery: Yes Psychiatric History Psychiatric History Hx Psychiatric Treatment: States that he was treated in the past by a psychiatrist in [place] States that he has not seen the provider since last Jun. Hx suicide attempt in 1999 - attempted to cut wrist and overdose. History of Inpatient Treatment: Yes Social History [place] male. had been living with his girlfriend and 2 children. On disability Hx Alcohol Use: No Hx Tobacco Use: Yes Hx Substance Use: Yes (Last used a day and half ago. ) Substance Use Type: Crack, Marijuana, Nicotine/Cigarettes Hx of Substance Use Treatment: No Family Psychiatric History Mother w substance abuse issues Allergies-Medications (Allergen,Severity, Reaction): Coded Allergies: Egg Allergy (Verified Allergy, Severe, Anaphylaxis, 02/05/17) Morphine (Verified Allergy, Severe, Anaphylaxis, 02/05/17) Mushroom (Verified Allergy, Severe, SWELLING, 02/05/17) Penicillin (Verified Allergy, Mild, 02/05/17) Reported Meds & Prescriptions Reported Meds & Active Scripts Active Depakote DR (Divalproex Sodium) 250 Mg Tabdr 250 Mg PO BID Reported Diltiazem (Diltiazem HCl) 30 Mg Tab 30 Mg PO DAILY Aspirin 81 Mg Chew 81 Mg CHEW DAILY Keppra (Levetiracetam) 500 Mg Tab 500 Mg PO BID Exam Alert: Yes [place]: Person Mood: Calm Affect: Appropriate Speech: Clear, Logical Eye Contact: Normal Memory Intact: Comment (No impairment) Hallucinations: Other Delusions: No Suicidal: Ideation (denies any ) Homicidal: Ideation (denies any) Insight/Judgement Poor MDM Medical Decision Making Medical Record Reviewed: Yes Assessment/Plan 42 year old male with history of substance use disorder who presents on a voluntary basis for suicidal thoughts. He has been using cocaine prior to coming in to hospital. Patient at this time does not present any psychiatric concerns. Sydnie aquino is more interested in sleeping. He will be discharged to follow up w [facility]. Orders Complete Blood Count With Diff (02/05/17 07:55) Comprehensive Metabolic Panel (02/05/17 07:55) Psych Screen (02/05/17 07:55) Drug Screen, Random Urine (02/05/17 07:55) Alcohol (Ethanol) (02/05/17 07:55) Results Vital Signs Date Time Temp Pulse Resp B/P Pulse Ox O2 Delivery O2 Flow Rate FiO2 02/05/17 07:52 16 Room Air 02/05/17 07:41 99.2 88 16 117/75 97 Room Air Laboratory Tests Test 02/05/17 02/05/17 08:06 08:25 White Blood Count 12.0 Red Blood Count 4.61 Hemoglobin 13.1 Hematocrit 40.0 Mean Corpuscular Volume 86.6 Mean Corpuscular Hemoglobin 28.5 Mean Corpuscular Hemoglobin 32.9 Concent Red Cell Distribution Width 13.6 Platelet Count 234 Mean Platelet Volume 8.7 Neutrophils (%) (Auto) 77.8 Lymphocytes (%) (Auto) 16.6 Monocytes (%) (Auto) 4.0 Eosinophils (%) (Auto) 1.1 Basophils (%) (Auto) 0.5 Neutrophils # (Auto) 9.4 Lymphocytes # (Auto) 2.0 Monocytes # (Auto) 0.5 Eosinophils # (Auto) 0.1 Basophils # (Auto) 0.1 CBC Comment DIFF FINAL Differential Comment Sodium Level 143 Potassium Level 3.9 Chloride Level 107 Carbon Dioxide Level 27.0 Anion Gap 9 Blood Urea Nitrogen 11 Creatinine 0.98 Estimat Glomerular Filtration 83 Rate Random Glucose 117 Calcium Level 8.8 Total Bilirubin 0.2 Aspartate Amino Transf 12 (AST/SGOT) Alanine Aminotransferase 14 (ALT/SGPT) Alkaline Phosphatase 80 Total Protein 6.5 Albumin 3.4 Ethyl Alcohol Level LESS THAN 3 Urine Opiates Screen NEG Urine Barbiturates Screen NEG Urine Amphetamines Screen NEG Urine Benzodiazepines Screen NEG Urine Cocaine Screen POS Urine Cannabinoids Screen NEG Diagnosis Primary Impression: Cocaine abuse Additional Impression: Substance induced mood disorder Psychiatrically Cleared: Yes Med/ Other Pt Specific Info: No Change to Meds Disposition: 01 DISCHARGE HOME Condition: Stable Problem Qualifiers Ana Maria Mercado Feb 05, 2017 11:45
== END 2017-02-05 12:46 ==
LOC: NEPE 07:39
DX: F14.10 Cocaine abuse, uncomplicated (principal); F39 Unspecified mood [affective] disorder; R45.851 Suicidal ideations; Z87.891 Personal history of nicotine dependence
CPT/HCPCS: 80053; 80307; 85025; 99285

== ENCOUNTER 2017-05-31 21:02 | Emergency (ER) | payer SELFPAY ==
[~2017-05-31] VITALS: Ht 182.9 cm; Wt 63.6 kg
[2017-05-31 21:04] VITALS: BP 119/62; PULSE 79; TEMP 97.9
[2017-05-31] MEDS ORDERED: LORazepam 2 MG/ML VIAL IV PUSH ONE (21:15)
[2017-05-31] MEDS ORDERED: SODIUM CHLORIDE 0.9% FLUSH 10 ML FLUSH IVF PRN (21:15)
[2017-05-31] MEDS ORDERED: SODIUM CHLOR 0.9% 1000 ML INJ 1,000 ML IV ONE (21:15)
[2017-05-31] MEDS ORDERED: ASPIRIN 81 MG CHEW TAB PO ONE (21:15)
[2017-05-31] MEDS: NITROGLYCERIN 0.4 MG SL 25 TABS/BTL SL SCH ×2 (21:20→21:54)
[2017-05-31 21:38] LABS: AUTOMATED NEUTROPHIL # 6.7 TH/MM3 (1.8-7.7); BASOPHIL # 0.1 TH/MM3 (0-0.2); BASOPHIL % 0.8 % (0.0-2.0); EOSINOPHIL # 0.1 TH/MM3 (0-0.4); EOSINOPHIL % 1.5 % (0.0-4.0); HEMATOCRIT 44.8 % (39.0-51.0); HEMO FLAGS DIFF FINAL; LYMPH % 24.3 % (9.0-44.0); LYMPHOCYTE # 2.4 TH/MM3 (1.0-4.8); MEAN CELL VOLUME 88.3 FL (80.0-100.0); MEAN CORPUSCULAR HEMOGLOBIN 29.8 PG (27.0-34.0); MEAN CORPUSCULAR HGB CONC 33.7 % (32.0-36.0); MONO % 5.2 % (0.0-8.0); NEUT % 68.2 % (16.0-70.0); PLATELET COUNT 222 TH/MM3 (150-450); RED BLOOD COUNT 5.07 MIL/MM3 (4.50-5.90); RED CELL DISTRIBUTION WIDTH 14.8 % (11.6-17.2); WHITE BLOOD COUNT 9.8 TH/MM3 (4.0-11.0)
[2017-05-31 21:43] LABS: APTT (PATIENT) 24.3 SEC (24.3-30.1); PROTHROMBIN TIME - PATIENT 11.5 SEC (9.8-11.6)
[2017-05-31 21:53] VITALS: BP 108/71; PULSE 70; O2SAT 98
[2017-05-31 21:53] LABS: ALT (GPT) 17 U/L (12-78); ANION GAP 9 MEQ/L (5-15); AST (GOT) 14 U/L (15-37); BICARBONATE 24.4 MEQ/L (21.0-32.0); BLOOD UREA NITROGEN 13 MG/DL (7-18); CHLORIDE 108 MEQ/L (98-107); GLOMERULAR FILTRATION RATE 62 ML/MIN (>89); MAGNESIUM 2.3 MG/DL (1.5-2.5); POTASSIUM 3.8 MEQ/L (3.5-5.1); SODIUM (NA) 141 MEQ/L (136-145)
--- NOTE | 2017-05-31 21:55 | RADRPT ---
EXAM DATE/TIME: 05/31/2017 21:19 [place] COMPARISON: CHEST SINGLE AP, February 04, 2017, 6:52. INDICATIONS : Chest pain and shortness of breath. MEDICAL HISTORY : None. SURGICAL HISTORY : Cardiac stents x 4 ENCOUNTER: Initial ACUITY: 1 day PAIN SCORE: 8/10 LOCATION: Bilateral chest FINDINGS: A single view of the chest demonstrates the lungs to be symmetrically aerated without evidence of mas s, infiltrate or effusion. The cardiomediastinal contours are unremarkable. Osseous structures are intact. CONCLUSION: The lungs are clear. Lyle Tapia MD on May 31, 2017 at 21:53 Board Certified Radiologist. This report was verified electronically.
[2017-05-31 21:57] LABS: ALKALINE PHOSPHATASE 91 U/L (45-117); CREATINE KINASE 184 U/L (39-308); TOTAL BILIRUBIN ADULT 0.5 MG/DL (0.2-1.0)
[2017-05-31 22:06] VITALS: BP 100/63; PULSE 75; RESP 18; O2SAT 98
[2017-05-31 22:10] LABS: CKMB 1.6 NG/ML (0.5-3.6)
--- NOTE | 2017-05-31 22:39 | PD ---
HPI Chief Complaint: Chest Pain Time Seen by Provider: 21:08 Travel History International Travel<30 days: No Contact w/Intl Traveler<30days: No Traveled to known affect area: No History of Present Illness HPI Is a 42-year-old man who presents to the emergency department cleaning of chest pain. He describes chest pain is started about 8:30 this evening. He has a history of CAD with previous stents and MIs. Previous MIs have been associated with cocaine for early some of them. States he took cocaine yesterday. States it does hurt to breathe a little bit. His last stress test about 2 years ago. His last OH was about 3 years ago. He also is a history of seizures. Was feeling well before that. No recent illness or injury. No other complaints. History Past Medical History Narrative Medical CAD Seizures Cocaine use Tetanus Vaccination: < 5 Years Influenza Vaccination: Yes Social History Alcohol Use: Yes (occ) Tobacco Use: Yes Allergies-Medications (Allergen,Severity, Reaction): Coded Allergies: egg (Unverified Allergy, Severe, Anaphylaxis, 04/15/17) morphine (Unverified Allergy, Severe, Anaphylaxis, 04/15/17) mushroom (Unverified Allergy, Severe, SWELLING, 04/15/17) penicillin G (Unverified Allergy, Mild, 04/15/17) Reported Meds & Prescriptions Reported Meds & Active Scripts Active Reported Diltiazem (Diltiazem HCl) 30 Mg Tab 30 Mg PO DAILY Aspirin 81 Mg Chew 81 Mg CHEW DAILY Keppra (Levetiracetam) 500 Mg Tab 500 Mg PO BID Review of Systems Except as stated in HPI: all other systems reviewed are Neg Physical Exam Narrative GENERAL: Well-appearing 42-year-old man, no acute distress. SKIN: Focused skin assessment warm/dry. HEAD: Atraumatic. Normocephalic. CARDIOVASCULAR: Regular rate and rhythm. No murmur appreciated. RESPIRATORY: No accessory muscle use. Clear to auscultation. Breath sounds equal bilaterally. GASTROINTESTINAL: Abdomen soft, non-tender, nondistended. Hepatic and splenic margins not palpable. MUSCULOSKELETAL: No obvious deformities. No clubbing. No cyanosis. No edema. NEUROLOGICAL: Awake and alert. No obvious cranial nerve deficits. Motor grossly within normal limits. Normal speech. PSYCHIATRIC: Appropriate mood and affect; insight and judgment normal. Data Data Last Documented VS Vital Signs Date Time Temp Pulse Resp B/P (MAP) Pulse Ox O2 Delivery O2 Flow Rate FiO2 05/31/17 23:26 76 18 93/58 (70) 100 Room Air 05/31/17 21:04 97.9 Orders Orders Electrocardiogram (05/31/17 21:08) Ckmb (Isoenzyme) Profile (05/31/17 21:08) Complete Blood Count With Diff (05/31/17 21:08) Comprehensive Metabolic Panel (05/31/17 21:08) Magnesium (Mg) (05/31/17 21:08) Prothrombin Time / Inr (Pt) (05/31/17 21:08) Act Partial Throm Time (Ptt) (05/31/17 21:08) Troponin I (05/31/17 21:08) Lipase (05/31/17 21:08) Chest, Single Ap (05/31/17 21:08) Ecg Monitoring (05/31/17 21:08) Bilateral Bp Monitoring (05/31/17 21:08) Iv Access Insert/Monitor (05/31/17 21:08) Oximetry (05/31/17 21:08) Oxygen Administration (05/31/17 21:08) Aspirin Chew (Aspirin Chew) (05/31/17 21:15) Sodium Chloride 0.9% Flush (Ns Flush) (05/31/17 21:15) Nitroglycerin Sl (Nitrostat Sl) (05/31/17 21:15) Sodium Chlor 0.9% 1000 Ml Inj (Ns 1000 M (05/31/17 21:15) Lorazepam Inj (Ativan Inj) (05/31/17 21:15) CKMB (05/31/17 21:10) CKMB% (05/31/17 21:10) Troponin I (06/01/17 00:10) Levetiracetam 1000 Mg Inj (Keppra 1000 M (05/31/17 23:30) Labs Laboratory Tests Test 05/31/17 21:10 06/01/17 00:33 White Blood Count 9.8 TH/MM3 Red Blood Count 5.07 MIL/MM3 Hemoglobin 15.1 GM/DL Hematocrit 44.8 % Mean Corpuscular Volume 88.3 FL Mean Corpuscular Hemoglobin 29.8 PG Mean Corpuscular Hemoglobin Concent 33.7 % Red Cell Distribution Width 14.8 % Platelet Count 222 TH/MM3 Mean Platelet Volume 9.5 FL Neutrophils (%) (Auto) 68.2 % Lymphocytes (%) (Auto) 24.3 % Monocytes (%) (Auto) 5.2 % Eosinophils (%) (Auto) 1.5 % Basophils (%) (Auto) 0.8 % Neutrophils # (Auto) 6.7 TH/MM3 Lymphocytes # (Auto) 2.4 TH/MM3 Monocytes # (Auto) 0.5 TH/MM3 Eosinophils # (Auto) 0.1 TH/MM3 Basophils # (Auto) 0.1 TH/MM3 CBC Comment DIFF FINAL Differential Comment Prothrombin Time 11.5 SEC Prothromb Time International Ratio 1.0 RATIO Activated Partial Thromboplast Time 24.3 SEC Blood Urea Nitrogen 13 MG/DL Creatinine 1.26 MG/DL Random Glucose 71 MG/DL Total Protein 7.6 GM/DL Albumin 3.7 GM/DL Calcium Level 9.3 MG/DL Magnesium Level 2.3 MG/DL Alkaline Phosphatase 91 U/L Aspartate Amino Transf (AST/SGOT) 14 U/L Alanine Aminotransferase (ALT/SGPT) 17 U/L Total Bilirubin 0.5 MG/DL Sodium Level 141 MEQ/L Potassium Level 3.8 MEQ/L Chloride Level 108 MEQ/L Carbon Dioxide Level 24.4 MEQ/L Anion Gap 9 MEQ/L Estimat Glomerular Filtration Rate 62 ML/MIN Total Creatine Kinase 184 U/L Creatine Kinase MB 1.6 NG/ML Troponin I LESS THAN 0.02 NG/ML LESS THAN 0.02 NG/ML Lipase 125 U/L MDM Medical Decision Making Medical Screen Exam Complete: Yes Emergency Medical Condition: Yes Interpretation(s) My review of EKG: Normal sinus rhythm at a rate of 79, normal axis, normal intervals, no acute ischemia. LABS: CBC is unremarkable. CMP is generally unremarkable. Troponin negative 2 Lipase normal Chest x-ray negative. Differential Diagnosis ACS, cocaine chest pain, stent, pericarditis, PE, other Narrative Course Medical decision making 41-year-old man presents emergency Department with chest pain, history of ACS, recent cocaine use, EKG is unremarkable. We'll check 3 hour repeat troponin, discharge and recommend cocaine cessation outpatient follow-up. 11:30 PM: Initial set of labs are all negative. Patient looks well. He had some sort of pseudoseizure-like episode in the ED. Witnessed by nursing staff. Brief tonic episode with upper extremity was in severity and resisting exam during the episode lasting about a minute or so. Talking to me immediately afterwards, unlikely to be consistent with generalized seizure. He states he's been taking his Keppra. We gave him an extra dose of 1 g through the IV here. Diagnosis Primary Impression: Cocaine abuse Additional Impression: Chest pain Additional Instructions: Avoid cocaine. Follow-up with her primary doctor next 2-4 days. Return to the emergency department for any new or worsening symptoms. Med/Other Pt SpecificInfo: No Change to Meds Disposition: 01 DISCHARGE HOME Condition: Stable Lorne Guzman MD May 31, 2017 22:39
[2017-05-31 23:26] VITALS: BP 93/58; PULSE 76; RESP 18; O2SAT 100
[2017-05-31] MEDS ORDERED: levETIRAcetam 1000 MG INJ 100 ML IV ONE (23:30)
[2017-06-01 03:22] VITALS: BP 98/56; PULSE 87; RESP 18; O2SAT 100
--- NOTE | 2017-06-01 07:05 | EKG ---
Date Performed: 06/01/2017 Time Performed: 00:37:54 PTAGE: 42 years EKG: Sinus rhythm WITH MARKED SINUS ARRHYTHMIA BORDERLINE ECG PREVIOUS TRACING : 06/01/2017 00.37 No significant change from previous tracing noted. DOCTOR: Michael Gee Interpretating Date/Time 06/01/2017 07:04:07
--- NOTE | 2017-06-01 07:08 | EKG ---
Date Performed: 05/31/2017 Time Performed: 21:05:37 PTAGE: 42 years EKG: Sinus rhythm WITH SINUS ARRHYTHMIA NORMAL ECG NO PREVIOUS TRACING DOCTOR: Michael Gee Interpretating Date/Time 06/01/2017 07:06:12
== END 2017-06-01 03:24 | disposition home or self-care (01) ==
LOC: NEPC 21:02
DX: F14.10 Cocaine abuse, uncomplicated (principal); R07.9 Chest pain, unspecified; I49.8 Other specified cardiac arrhythmias; I25.10 Atherosclerotic heart disease of native coronary artery without angina pectoris; R56.9 Unspecified convulsions; Z72.0 Tobacco use; Z79.82 Long term (current) use of aspirin; Z79.899 Other long term (current) drug therapy; Z88.5 Allergy status to narcotic agent
CPT/HCPCS: 71010; 80053; 82550; 82552; 83690; 83735; 84484; 85025; 85610; 85730; 93005; 96361; 96365; 96375; 99285; J1953; J2060; J7030

== ENCOUNTER 2017-06-02 23:43 | Emergency (ER) | payer MEDICAID ==
[~2017-06-02] VITALS: Ht 182.9 cm; Wt 64.0 kg
[~2017-06-02 23:43] MED LIST changes: -DEPA250T2 PO
[2017-06-03] VITALS: BP 105/72; PULSE 91; RESP 18; O2SAT 95
[2017-06-03] MEDS ORDERED: HYDR-3366 PO (00:14)
[2017-06-03 01:35] LABS: POTASSIUM 3.4 MEQ/L (3.5-5.1)
[2017-06-03 02:10] VITALS: BP 102/58; PULSE 59
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
[2017-06-03] MEDS ORDERED: levETIRAcetam INJ 500 MG in SODIUM CHLORIDE 0.9% INJ 100 ML IV ONE (04:00)
[2017-06-03] MEDS ORDERED: POTASSIUM CHLORIDE 20 MEQ CONTROLLED RELEASE TAB PO ONE (04:00)
[2017-06-03] MEDS ORDERED: LEVE500 PO (04:36)
[2017-06-03 04:56] VITALS: BP_SYST 115; BP_DIAS 7; BP_DIAS 72; PULSE 70; RESP 18; O2SAT 97
== END 2017-06-03 05:44 | disposition home or self-care (01) ==
LOC: NEPC 23:43
DX: G40.909 Epilepsy, unspecified, not intractable, without status epilepticus (principal); I25.10 Atherosclerotic heart disease of native coronary artery without angina pectoris; I25.2 Old myocardial infarction; F31.9 Bipolar disorder, unspecified; F17.200 Nicotine dependence, unspecified, uncomplicated; Z79.82 Long term (current) use of aspirin; Z79.899 Other long term (current) drug therapy; Z86.718 Personal history of other venous thrombosis and embolism; Z91.14 Patient's other noncompliance with medication regimen
CPT/HCPCS: 80048; 96365; 99284; J1953